=== PATIENT | female | born 1965 | race Caucasian/White ===

== ENCOUNTER → 2017-07-28 | Outpatient (CLI) | payer OTHER ==
--- NOTE | 2017-08-01 18:11 | Diagnostic Imaging Report ---
#[id number] - MGSCRBIL #BILATERAL DIGITAL SCREENING MAMMOGRAM WITH CAD: 07/28/2017 CLINICAL: Routine screening. Comparison is made to exams dated: 01/01/2017 mammogram, 07/04/2016 mammogram and 06/10/2016 mammogram - [facility]. Current study contains 4 films. The tissue of both breasts is heterogeneously dense. This may lower the sensitivity of mammography. Current study was also evaluated with a Computer Aided Detection (CAD) system. There is an oval mass now apparent in the left breast at 12 o'clock middle depth. Stable calcification and breast density asymmetry in the right breast. No other significant masses, calcifications, or other findings are seen in either breast. IMPRESSION: INCOMPLETE: NEEDS ADDITIONAL IMAGING EVALUATION The oval mass in the left breast resembles a cyst but is indeterminate. Additional views with possible ultrasound are recommended. The patient will be contacted by the Mammography Department to schedule this appointment. Toi Irving Jr., D.O. cw/:08/01/2017 09:24:39 Drag Down: Jelena LUCERO(Marcelina)(M), [facility] letter sent: Additional Imaging Needed Mammogram BI-RADS: 0 Indeterminate
== END ==
LOC: MAMMO 08:57
PROVIDERS: ATTEND Obstetrics & Gynecology
DX: Z12.31 Encounter for screening mammogram for malignant neoplasm of breast (principal)
CPT/HCPCS: 77067

== ENCOUNTER → 2017-08-19 | Outpatient (CLI) | payer OTHER ==
--- NOTE | 2017-08-19 15:42 | Diagnostic Imaging Report ---
#[id number] - USBRELIMLT ULTRASOUND OF THE LEFT BREAST : 08/19/2017 Comparison is made to exams dated: 08/19/2017 mammogram and 07/28/2017 mammogram - [facility]. Color flow and real-time ultrasound were performed on the left breast. There is a benign round cyst measuring 1.1 x 0.9 x 0.8 cm approximately 5 cm from the nipple in the left breast at 12 o'clock middle depth. IMPRESSION: BENIGN There is no sonographic evidence of malignancy. The round cyst in the left breast is benign. A 1 year screening mammogram is recommended. Toi Irving Jr., D.O. cw/:08/19/2017 13:37:22 Integrated Circuit Design Engineer: RICHAR MENDEZ, [facility] letter sent: Compared to Prior B9 Ultrasound BI-RADS: 2 Benign
--- NOTE | 2017-08-19 15:42 | Diagnostic Imaging Report ---
#[id number] - MGDXLT #UNILATERAL LEFT DIGITAL DIAGNOSTIC MAMMOGRAM: 08/19/2017 Comparison is made to exams dated: 07/28/2017 mammogram, 01/01/2017 mammogram, 07/04/2016 mammogram and 06/10/2016 mammogram - [facility]. Current study contains 3 films. The tissue of the left breast is heterogeneously dense. This may lower the sensitivity of mammography. There is a 1 cm oval mass in the left breast at 12 o'clock middle depth. No other significant masses or calcifications are seen in the breast. IMPRESSION: INCOMPLETE: NEEDS ADDITIONAL IMAGING EVALUATION The 1 cm oval mass in the left breast is indeterminate. An ultrasound is recommended. Follow-up with ACR/ACS guidelines. The patient will be contacted by the Mammography Department to schedule this appointment. Toi goldberg/silverio:08/19/2017 13:32:21 Emission Specialist: Jelena LUCERO(Marcelina)(M), [facility] letter sent: Additional Imaging Needed Mammogram BI-RADS: 0 Indeterminate
== END ==
LOC: MAMMO 11:33
PROVIDERS: ATTEND Obstetrics & Gynecology
DX: N63.20 Unspecified lump in the left breast, unspecified quadrant (principal)

== ENCOUNTER → 2018-07-28 | Outpatient (CLI) | payer OTHER | LOC: MAMMO 08:03 | PROVIDERS: ATTEND Obstetrics & Gynecology | DX: Z12.31 Encounter for screening mammogram for malignant neoplasm of breast (principal) | CPT/HCPCS: 77067 ==

== ENCOUNTER → 2020-08-08 | Outpatient (CLI) | payer OTHER | LOC: MAMMO 08:41 | PROVIDERS: ATTEND Obstetrics & Gynecology | DX: Z12.31 Encounter for screening mammogram for malignant neoplasm of breast (principal) | CPT/HCPCS: 77067 ==

== ENCOUNTER → 2021-08-29 | Outpatient (CLI) | payer OTHER | LOC: MAMMO 08:43 | PROVIDERS: ATTEND Obstetrics & Gynecology | DX: Z12.31 Encounter for screening mammogram for malignant neoplasm of breast (principal) | CPT/HCPCS: 77067 ==

== ENCOUNTER → 2022-08-26 | Outpatient (CLI) | payer OTHER | LOC: MAMMO 13:13 | PROVIDERS: ATTEND Obstetrics & Gynecology | DX: Z12.31 Encounter for screening mammogram for malignant neoplasm of breast (principal) | CPT/HCPCS: 77067 ==